=== PATIENT | female | born 1935 | race Two or more races ===

== ENCOUNTER 2020-03-29 11:47 | Inpatient (IN) | payer OTHER, MEDICAID ==
[~2020-03-29] VITALS: Ht 172.7 cm; Wt 70.8 kg
[2020-03-29] MEDS ORDERED: AMLODIPINE 5MG TABLET PO ONE (12:30)
[2020-03-29] MEDS ORDERED: ASPIRIN 81MG TABLET PO ONE (12:30)
[2020-03-29 12:40] LABS: BASOPHILS % 0.8 % (0.0-2.0); EOSINOPHILS % 2.2 % (0.0-5.0); HEMATOCRIT. 42.8 % (36.0-48.0); HEMOGLOBIN. 14.5 g/dL (12.0-16.0); LYMPHOCYTES % 14.7 % (20.0-50.0); MEAN CORPUSCULAR HEMOGLOBIN 31.4 pg (28.0-32.0); MEAN CORPUSCULAR VOLUME 92.6 fL (81.0-99.0); MEAN PLATELET VOLUME 8.1 fl (7.4-10.4); MONOCYTES % 7.1 % (2.0-8.0); NEUTROPHILS % 75.2 % (40.0-76.0); PLATELET 250 x1000/uL (130-400); RED BLOOD CELL COUNT 4.62 mill/uL (4.2-5.4); RED CELL DISTRIBUTION WIDTH 13.8 % (11.6-14.6)
[2020-03-29 12:46] LABS: CHLORIDE 105 mEq/L (98-107)
[2020-03-29 13:20] LABS: CLARITY URINE CLEAR (CLEAR); COLOR URINE YELLOW (YELLOW); KETONES URINE NEGATIVE (NEGATIVE); LEUKOCYTE ESTERASE URINE NEGATIVE (NEGATIVE); NITRITE URINE NEGATIVE (NEGATIVE); OCCULT BLOOD URINE TRACE (NEGATIVE); PH URINE 5.5 (4.5-8.0); PROTEIN URINE NEGATIVE (NEGATIVE); SPECIFIC GRAVITY URINE 1.015 (1.005-1.030); UROBILINOGEN URINE 0.2 E.U./dL (0.2-1.0)
[2020-03-29] MEDS ORDERED: HYDRALAZINE HCL 100MG TABLET PO ONE (15:00)
[2020-03-29] MEDS: NITROGLYCERIN 0.4MG TABLET SL SL PRN ×3 (18:38→21:26)
[2020-03-29] MEDS ORDERED: DOCUSATE SODIUM 100MG CAPSULE PO PRN (19:30)
[2020-03-29] MEDS ORDERED: MAGNESIUM/ALUMINUM HYDROXIDE/SIMETHICONE 30ML UDC PO PRN (19:30)
[2020-03-29] MEDS ORDERED: ONDANSETRON HCL 4MG/2ML INJ IV PRN (19:30)
[2020-03-29] MEDS: SODIUM CHLORIDE 0.9% 1,000 ML IV SCH (20:01)
[2020-03-29 22:00] VITALS: BP 130/54
[2020-03-29] MEDS ORDERED: DEXTROSE 50% WATER 50ML SYRINGE IV PRN (22:00)
[2020-03-29 23:00] VITALS: BP 130/54
[2020-03-29] MEDS: ACETAMINOPHEN 325MG TABLET PO PRN (23:46)
[2020-03-30] VITALS: BP 156/64
[2020-03-30 00:36] LABS: CREATINE KINASE 63 IU/L (26-192)
[2020-03-30 00:37] LABS: CREATINE KINASE MB FRACTION 1.2 ng/mL (0.5-3.6)
[2020-03-30 04:00] VITALS: BP 178/60
[2020-03-30] MEDS: CLONIDINE 0.1MG TABLET PO PRN ×2 (04:16→21:04)
[2020-03-30] MEDS: NITROGLYCERIN 0.4MG TABLET SL SL PRN ×2 (05:03→16:22)
[2020-03-30] MEDS: BLOOD SUGAR DIAGNOSTIC STRIP TEST SCH ×4 (06:03→21:04)
[2020-03-30 07:48] LABS: BASOPHILS % 0.8 % (0.0-2.0); CHLORIDE 105 mEq/L (98-107); EOSINOPHILS % 1.1 % (0.0-5.0); HEMATOCRIT. 38.8 % (36.0-48.0); HEMOGLOBIN. 13.1 g/dL (12.0-16.0); LYMPHOCYTES % 14.8 % (20.0-50.0); MEAN CORPUSCULAR HEMOGLOBIN 31.3 pg (28.0-32.0); MEAN CORPUSCULAR VOLUME 92.7 fL (81.0-99.0); MEAN PLATELET VOLUME 8.6 fl (7.4-10.4); MONOCYTES % 8.9 % (2.0-8.0); NEUTROPHILS % 74.4 % (40.0-76.0); PLATELET 244 x1000/uL (130-400); RED BLOOD CELL COUNT 4.19 mill/uL (4.2-5.4)
[2020-03-30 07:56] LABS: LDL CHOLESTEROL 121 mg/dL (5-100)
[2020-03-30 07:58] LABS: CREATINE KINASE 57 IU/L (26-192); HDL CHOLESTEROL 43 mg/dL (40-59)
[2020-03-30 08:00] VITALS: BP 136/50
[2020-03-30 08:01] LABS: CREATINE KINASE MB FRACTION 1.4 ng/mL (0.5-3.6)
[2020-03-30] MEDS: INSULIN LISPRO 100 UNITS/ML SUBCUT SCH ×4 (08:07→21:00)
[2020-03-30] MEDS: ASPIRIN 81MG EC TABLET PO SCH (08:07)
[2020-03-30] MEDS ORDERED: POTASSIUM CHLORIDE 20MEQ TABLET SR PO NR (09:30)
[2020-03-30] MEDS: SODIUM CHLORIDE 0.9% 1,000 ML IV SCH (11:49)
[2020-03-30 12:00] VITALS: BP 125/62
[2020-03-30 16:00] VITALS: BP 131/60
[2020-03-30 20:00] VITALS: BP 167/88
[2020-03-30] MEDS: ATORVASTATIN CALCIUM 20MG TABLET PO SCH (21:04)
[2020-03-30] MEDS ORDERED: GLIP5TAB12 MT (21:52)
[2020-03-30] MEDS ORDERED: ASCO125T PO (21:52)
[2020-03-30] MEDS ORDERED: METF-416 PO (21:52)
[2020-03-30] MEDS ORDERED: ATOR20TA65 MT (21:52)
[2020-03-30] MEDS ORDERED: CHOL40002 MT (21:52)
[2020-03-30] MEDS ORDERED: METO-539 PO (21:52)
[2020-03-30] MEDS: ACETAMINOPHEN 325MG TABLET PO PRN (23:27)
[2020-03-31 00:07] VITALS: BP 158/58
[2020-03-31 04:00] VITALS: BP 156/57
[2020-03-31] MEDS: BLOOD SUGAR DIAGNOSTIC STRIP TEST SCH ×4 (06:10→20:39)
[2020-03-31] MEDS: INSULIN LISPRO 100 UNITS/ML SUBCUT SCH ×4 (06:57→20:39)
[2020-03-31 08:00] VITALS: BP 158/72
[2020-03-31] MEDS: ASPIRIN 81MG EC TABLET PO SCH (08:46)
[2020-03-31] MEDS ORDERED: POTASSIUM CHLORIDE 20MEQ TABLET SR PO SCH (09:00)
[2020-03-31] MEDS ORDERED: REGADENOSON 0.4 MG/5 ML IV ONE (11:30)
[2020-03-31 12:00] VITALS: BP 161/63
[2020-03-31] MEDS: KETOROLAC 15MG/ML VIAL IV PRN ×2 (12:11→20:44)
[2020-03-31] MEDS: AMLODIPINE 5MG TABLET PO SCH ×2 (12:11→20:44)
[2020-03-31 16:00] VITALS: BP 123/67
[2020-03-31 20:00] VITALS: BP 126/48
[2020-03-31] MEDS: ATORVASTATIN CALCIUM 20MG TABLET PO SCH (20:44)
[2020-03-31] MEDS: NITROGLYCERIN 0.4MG TABLET SL SL PRN ×2 (22:52→22:58)
[2020-04-01] VITALS (7 sets, daily range): BP systolic 145–169; BP diastolic 44–68
[2020-04-01] MEDS: ACETAMINOPHEN 325MG TABLET PO PRN (00:37)
[2020-04-01] MEDS: KETOROLAC 15MG/ML VIAL IV PRN (04:36)
[2020-04-01] MEDS: NITROGLYCERIN 0.4MG TABLET SL SL PRN (04:45)
[2020-04-01] MEDS: BLOOD SUGAR DIAGNOSTIC STRIP TEST SCH ×3 (06:08→16:10)
[2020-04-01] MEDS: INSULIN LISPRO 100 UNITS/ML SUBCUT SCH ×3 (06:08→17:35)
[2020-04-01 07:14] LABS: BASOPHILS % 0.7 % (0.0-2.0); EOSINOPHILS % 2.2 % (0.0-5.0); HEMATOCRIT. 39.9 % (36.0-48.0); HEMOGLOBIN. 13.5 g/dL (12.0-16.0); LYMPHOCYTES % 16.2 % (20.0-50.0); MEAN CORPUSCULAR HEMOGLOBIN 31.3 pg (28.0-32.0); MEAN CORPUSCULAR VOLUME 92.3 fL (81.0-99.0); MEAN PLATELET VOLUME 8.3 fl (7.4-10.4); MONOCYTES % 11.4 % (2.0-8.0); NEUTROPHILS % 69.5 % (40.0-76.0); PLATELET 227 x1000/uL (130-400); RED BLOOD CELL COUNT 4.32 mill/uL (4.2-5.4); RED CELL DISTRIBUTION WIDTH 13.8 % (11.6-14.6)
[2020-04-01 07:16] LABS: CHLORIDE 106 mEq/L (98-107)
[2020-04-01] MEDS: ASPIRIN 81MG EC TABLET PO SCH (09:35)
[2020-04-01] MEDS: AMLODIPINE 5MG TABLET PO SCH (09:35)
[2020-04-01] MEDS ORDERED: REGADENOSON 0.4 MG/5 ML IV ONE (12:50)
[2020-04-01] MEDS ORDERED: LOSARTAN POTASSIUM 25 MG TABLET PO SCH (15:30)
== END 2020-04-01 17:50 | disposition home or self-care (01) | DRG 206 ==
LOC: ER 11:47 → 8WST 17:11 → EDBEDREQ 17:13 → ENRESERV 20:59
PROVIDERS: ADMIT Hospitalist; ATTEND Hospitalist
DX: M94.0 Chondrocostal junction syndrome [Tietze] (principal); N39.0 Urinary tract infection, site not specified; I44.7 Left bundle-branch block, unspecified; E78.5 Hyperlipidemia, unspecified; E11.9 Type 2 diabetes mellitus without complications; I25.10 Atherosclerotic heart disease of native coronary artery without angina pectoris; I11.9 Hypertensive heart disease without heart failure
CPT/HCPCS: 36415; 71045; 78452; 80053; 80061; 81003; 82550; 82553; 82962; 83036; 83735; 83880; 84484; 85025; 93005; 93017; 93306; 93970; 97162; 99291; A9500; J1815; J1885; J2785

== ENCOUNTER 2023-10-05 19:25 | Emergency (ER) | payer MEDICARE, MEDICAID ==
[~2023-10-05] VITALS: Ht 165.1 cm; Wt 80.0 kg
[~2023-10-05 19:25] MED LIST: ASCO125T PO; ATOR20TA65 MT; CHOL40002 MT; GLIP5TAB22 MT; METF-416 PO; METO-539 PO
[2023-10-05 19:55] VITALS: O2SAT 98
[2023-10-05] MEDS ORDERED: ACETAMINOPHEN 325MG TABLET PO ONE (21:00)
[2023-10-05] MEDS ORDERED: TOPUD MT (22:41)
[2023-10-05 23:25] VITALS: BP 122/74; PULSE 89; RESP 20; TEMP 98.2
== END 2023-10-05 23:51 | disposition home or self-care (01) ==
LOC: ER 19:25
DX: S00.03XA Contusion of scalp, initial encounter (principal); E11.9 Type 2 diabetes mellitus without complications; E78.00 Pure hypercholesterolemia, unspecified; I10 Essential (primary) hypertension; Y04.0XXA Assault by unarmed brawl or fight, initial encounter; Y93.89 Activity, other specified; Y92.89 Other specified places as the place of occurrence of the external cause; Y99.8 Other external cause status
CPT/HCPCS: 70486; 99284